=== PATIENT | female | born 1995 | race Two or more races ===

== ENCOUNTER 2018-06-10 22:06 | Emergency (ER) | payer OTHER ==
[~2018-06-10] VITALS: Ht 160 cm; Wt 54.4 kg
--- NOTE | 2018-06-10 22:28 | NUR ---
Dr. Stewart at bedside for MSE.
[2018-06-10] MEDS ORDERED: IV NORMAL SALINE 1000 ML BAG IV ONE (22:45)
[2018-06-10] MEDS ORDERED: METOCLOPRAMIDE HCL 10 MG/2 ML VIAL IV ONE (22:45)
[2018-06-10] MEDS ORDERED: METOCLOPRAMIDE HCL 10 MG/2 ML VIAL ONE (22:50)
[2018-06-10 22:53] LABS: BASOPHILS % (AUTO) 0.3 % (0.0-2.0); EOSINOPHILS # (AUTO) 0.1 K/uL (0.0-0.7); EOSINOPHILS % (AUTO) 0.6 % (0.0-7.0); HEMATOCRIT 42.3 % (31.2-41.9); HEMOGLOBIN 14.2 g/dL (10.9-14.3); LYMPHOCYTES # (AUTO) 2.3 K/uL (20.0-40.0); LYMPHOCYTES % (AUTO) 17.5 % (20.5-51.5); MEAN CORPUSCULAR HGB CONC 34 g/dL (32.3-35.6); MEAN CORPUSCULAR VOLUME 92.4 fL (75.5-95.3); MONOCYTES # (AUTO) 0.8 K/uL (2.0-10.0); NEUTROPHILS % (AUTO) 75.6 % (38.5-71.5); PLATELET COUNT (AUTO) 341 K/uL (179-408); RED BLOOD CELL COUNT(AUTO) 4.57 MIL/uL (3.63-4.92); WHITE BLOOD COUNT (AUTO) 13.2 K/uL (3.8-11.8)
--- NOTE | 2018-06-10 22:53 | NUR ---
Xray at bedside.
[2018-06-10 23:04] LABS: CREATININE 0.8 mg/dL (0.6-1.3); POTASSIUM 3.9 mmol/L (3.5-5.1)
[2018-06-10 23:10] LABS: BILIRUBIN,DIRECT 0.1 mg/dL (0.0-0.2); BILIRUBIN,TOTAL 0.4 mg/dL (0.2-1.0); TOTAL PROTEIN, SERUM 9.6 g/dL (6.4-8.2)
--- NOTE | 2018-06-10 23:20 | NUR ---
Pt provided urine sample, sent to lab.
--- NOTE | 2018-06-10 23:26 | NUR ---
Pt states nausea is gone.
[2018-06-10 23:27] LABS: *BLOOD, URINE NEGATIVE (NEGATIVE); *CLARITY,URINE CLEAR (CLEAR); *COLOR,URINE DARK YELLOW (YELLOW); *KETONES,URINE TRACE (NEGATIVE); LEUKOCYTE ESTERASE ,URINE NEGATIVE (NEGATIVE); NITRITE, URINE POSITIVE (NEGATIVE); UGLUCOSE TRACE (NEGATIVE)
[2018-06-10 23:32] LABS: *BILIRUBIN,URIN 1+ (NEGATIVE)
[2018-06-10] MEDS ORDERED: ONDANSETRON 4 MG/2 ML VIAL ONE (23:44)
[2018-06-10] MEDS ORDERED: ONDANSETRON IV *ER 4 MG/2 ML VIAL IV ONE (23:45)
[2018-06-10 23:56] LABS: BACTERIA,URINE NONE SEEN /HPF (NONE SEEN); RBC,URINE 0-3 /HPF (0-3); SQUAMOUS EPITHELIAL CELL,UR FEW /HPF (NONE SEEN)
[2018-06-10 23:57] LABS: MUCUS,URINE MANY /LPF (0-FEW)
[2018-06-11 00:02] LABS: *MONOTEST NEGATIVE (NEGATIVE)
--- NOTE | 2018-06-11 00:12 | NUR ---
Pt states she is feeling much better, states not nauseous anymore. MD notified.
--- NOTE | 2018-06-11 00:21 | NUR ---
Patient discharged to home in stable conditon. Written and verbal after care instructions given. Patient verbalizes understanding of instructions. Pt ambulated out of ER with steady gait, no acute signs of distress, VSS, all belongings taken. Addendum: 06/11/18 at 0022 by SURENDRA IV site discontinued.
[2018-06-11 00:23] VITALS: BP 115/79
== END 2018-06-11 00:24 | disposition home or self-care (01) ==
LOC: ER 22:08
DX: E86.0 Dehydration (principal); R09.81 Nasal congestion
CPT/HCPCS: 36415; 71045; 80048; 80076; 81001; 83605; 83690; 84484; 84702; 85025; 85730; 86308; 86403; 87040 ×2; 87070; 87086; 87400; 93005; 96361; 96374; 96375; 99284; J2405; J2765; 70030-TC; A4663; J7030